=== PATIENT | female | born 1955 | race Caucasian/White ===

== ENCOUNTER → 2017-05-10 | Outpatient (CLI) | payer OTHER ==
--- NOTE | 2017-05-13 07:40 | MM ---
Reason for exam: screening (asymptomatic). Last mammogram was performed 1 year ago. History: Patient is postmenopausal and history of other cancer. Family history of breast cancer in maternal grandmother at age 60. Took hormonal contraceptives for 6 years. Taking estrogen for 4 years beginning at age 53. Taking progesterone for 4 years beginning at age 53. Physical Findings: A clinical breast exam by your physician is recommended on an annual basis and results should be correlated with mammographic findings. MG Screening Mammo w CAD Bilateral CC and MLO view(s) were taken. Prior study comparison: May 03, 2016, bilateral MG screening mammo w CAD. May 02, 2015, bilateral MG screening mammo w CAD. The breast tissue is almost entirely fat. There is chronic nodularity in the left breast. No significant changes when compared with prior studies. ASSESSMENT: Benign, BI-RAD 2 RECOMMENDATION: Routine screening mammogram of both breasts in 1 year.
== END | disposition home or self-care (01) ==
LOC: RADMAMWWP 07:57
PROVIDERS: ATTEND Internal Medicine
DX: Z12.31 Encounter for screening mammogram for malignant neoplasm of breast (principal)

== ENCOUNTER → 2018-02-14 | Outpatient (CLI) | payer OTHER ==
--- NOTE | 2018-02-14 09:26 | MR ---
EXAMINATION TYPE: MR shoulder LT wo con DATE OF EXAM: 02/14/2018 COMPARISON: NONE HISTORY: Pain, left shoulder / Impingement TECHNIQUE: Multiplanar, multisequence imaging of the left shoulder is performed without contrast. FINDINGS: Rotator Cuff: There is abnormal thickening of the rotator cuff, abnormal increased signal is present within the tendon. Suspect some susceptibility artifact within the distribution of the rotator cuff t endon, correlate for prior surgery. Partial full-thickness tear is suspected within the supraspinatus tendon. Fluid signal is present in the subacromial subdeltoid bursa. Acromioclavicular Joint: Hypertrophic change is present with some questionable mass effect on suprasp inatus musculotendinous junction, suspect some postop change Glenohumeral Joint: Intact Labrum: The anterior aspect of the labrum appears absent, immediately anterior there is a focus of si gnal which could possibly represent hypertrophied middle glenohumeral ligament although a labral tear would be difficult to exclude. Biceps Tendon: The long head of biceps is in normal location within bicipital groove. Bone marrow signal: Some minimal cystic change is present within the humeral head. Other: Small joint effusion. Distal acromial spur is suspected. IMPRESSION: Postoperative changes. Suspect partial full-thickness tear of the rotator cuff tendon, correlate for impingement. Tendinopathy is present in the rotator cuff tendon. There may be [place] complex, difficu lt to exclude labral tear. Joint effusion.
== END ==
LOC: RADMRIMAIN 08:14
PROVIDERS: ATTEND Orthopaedic Surgery Sports Medicine
DX: M25.512 Pain in left shoulder (principal); M75.42 Impingement syndrome of left shoulder; M25.412 Effusion, left shoulder

== ENCOUNTER → 2018-04-25 | Outpatient (CLI) | payer OTHER ==
[2018-04-25 08:59] LABS: ALT 38 U/L (9-52); AST 32 U/L (14-36); Albumin 4.1 g/dL (3.5-5.0); Alkaline Phosphatase 50 U/L (38-126); Anion Gap 8 mmol/L; Blood Urea Nitrogen 20 mg/dL (7-17); Calcium 9.8 mg/dL (8.4-10.2); Carbon Dioxide 28 mmol/L (22-30); Chloride 105 mmol/L (98-107); Cholesterol 194 mg/dL (<200); Glucose 90 mg/dL (74-99); HDL Cholesterol 63 mg/dL (40-60); LDL Cholesterol,Calculated 116 mg/dL (0-99); Potassium 4.5 mmol/L (3.5-5.1); Sodium 141 mmol/L (137-145); Total Bilirubin 0.7 mg/dL (0.2-1.3); Total Protein 6.6 g/dL (6.3-8.2); Triglycerides 75 mg/dL (<150)
[2018-04-25 09:16] LABS: T4, Free (Free Thyroxine) 1.09 ng/dL (0.78-2.19)
[2018-04-25 09:21] LABS: Basophils # (A) 0.1 k/uL (0-0.2); Basophils % (A) 1 %; Eosinophils # (A) 0.5 k/uL (0-0.7); Eosinophils % (A) 8 %; HCT 43.6 % (34.0-46.0); HGB 14.1 gm/dL (11.4-16.0); Lymphocytes # (A) 1.1 k/uL (1.0-4.8); Lymphocytes % (A) 20 %; MCH 30.1 pg (25.0-35.0); MCHC 32.4 g/dL (31.0-37.0); MCV 92.8 fL (80.0-100.0); Mean Platelet Volume 7.3; Monocytes # (A) 0.4 k/uL (0-1.0); Monocytes % (A) 7 %; Neutrophils # (A) 3.5 k/uL (1.3-7.7); Neutrophils % (A) 61 %; Platelet Count 258 k/uL (150-450); RDW 12.7 % (11.5-15.5); WBC 5.7 k/uL (3.8-10.6)
== END | disposition home or self-care (01) ==
LOC: LABWHC1 07:49
DX: Z00.00 Encounter for general adult medical examination without abnormal findings (principal)
CPT/HCPCS: 36415; 80053; 80061; 82306; 84439; 84443; 84481; 85025

== ENCOUNTER → 2018-05-16 | Outpatient (CLI) | payer OTHER ==
--- NOTE | 2018-05-21 11:18 | MM ---
Reason for exam: screening (asymptomatic). Last mammogram was performed 1 year ago. History: Patient is postmenopausal and history of other cancer. Family history of breast cancer in maternal grandmother at age 60. Took hormonal contraceptives for 6 years. Taking estrogen for 4 years beginning at age 53. Taking progesterone for 4 years beginning at age 53. Physical Findings: A clinical breast exam by your physician is recommended on an annual basis and results should be correlated with mammographic findings. MG 3D Screening Mammo Wo Cad Bilateral CC and MLO view(s) were taken. Prior study comparison: May 10, 2017, bilateral MG screening mammo w CAD. May 03, 2016, bilateral MG screening mammo w CAD. There are scattered fibroglandular densities. No suspicious abnormality. ASSESSMENT: Negative, BI-RAD 1 RECOMMENDATION: Routine screening mammogram of both breasts in 1 year.
== END | disposition home or self-care (01) ==
LOC: RADMAMWWP 07:38
PROVIDERS: ATTEND Internal Medicine
DX: Z12.31 Encounter for screening mammogram for malignant neoplasm of breast (principal)
CPT/HCPCS: 77063; 77067

== ENCOUNTER → 2018-12-09 | Outpatient (CLI) | payer BC | END | disposition home or self-care (01) | LOC: LABWHC1 08:42 | DX: E03.9 Hypothyroidism, unspecified (principal) | CPT/HCPCS: 36415; 84443; 84481 ==

== ENCOUNTER → 2019-04-29 | Outpatient (CLI) | payer BC ==
[2019-04-29 10:53] LABS: African American GFR (CKD) 90.3 (60.0-200.0); Albumin 4.3 g/dL (3.80-4.90); Albumin/Globulin Ratio 2.05 (1.60-3.17); BUN/Creat Ratio 21.25 Ratio (12.00-20.00); Calcium 9.7 mg/dL (8.7-10.3); Globulin 2.1 g/dL (1.6-3.3); LDL Cholesterol,Calculated 116.8 mg/dL (0.0-131.0); Potassium 4.4 mmol/L (3.5-5.5); Total Bilirubin 0.5 mg/dL (0.2-1.2); Total Protein 6.4 g/dL (6.2-8.2); VLDL Calculation 14.2 mg/dL (5.00-40.00)
[2019-04-29 11:01] LABS: T4, Free (Free Thyroxine) 1.2 ng/dL (0.80-1.80)
== END | disposition home or self-care (01) ==
LOC: LABWHC1 07:12
DX: E03.9 Hypothyroidism, unspecified (principal)
CPT/HCPCS: 36415; 80053; 80061; 84439; 84443; 84481

== ENCOUNTER → 2019-10-19 | Outpatient (CLI) | payer MEDICARE ==
--- NOTE | 2019-10-19 13:30 | MM ---
Reason for exam: screening (asymptomatic). Last mammogram was performed 1 year and 5 months ago. History: Patient is postmenopausal and history of other cancer. Family history of breast cancer in maternal grandmother at age 60. Took hormonal contraceptives for 6 years. Took estrogen for 4 years beginning at age 53. Took progesterone for 4 years beginning at age 53. Physical Findings: A clinical breast exam by your physician is recommended on an annual basis and results should be correlated with mammographic findings. MG 3D Screening Mammo W/Cad Bilateral CC and MLO view(s) were taken. Prior study comparison: May 16, 2018, bilateral MG 3d screening mammo wo cad. May 10, 2017, bilateral MG screening mammo w CAD. There are scattered fibroglandular densities. No suspicious abnormality. No significant changes when compared with prior studies. ASSESSMENT: Negative, BI-RAD 1 RECOMMENDATION: Routine screening mammogram of both breasts in 1 year.
== END | disposition home or self-care (01) ==
LOC: RADMAMWWP 08:14
PROVIDERS: ATTEND Family Medicine
DX: Z12.39 Encounter for other screening for malignant neoplasm of breast (principal)
CPT/HCPCS: 77063; 77067

== ENCOUNTER → 2019-11-11 | Outpatient (CLI) | payer MEDICARE ==
[2019-11-11 16:07] LABS: T4, Free (Free Thyroxine) 1.3 ng/dL (0.80-1.80)
== END | disposition home or self-care (01) ==
LOC: LABWHC1 08:21
DX: E03.9 Hypothyroidism, unspecified (principal)
CPT/HCPCS: 36415; 84439; 84443

== ENCOUNTER → 2023-02-04 | Outpatient (CLI) | payer MEDICARE ==
[2023-02-04 11:50] LABS: Basophils # (A) 0.11 X 10*3/uL (0.00-0.10); Basophils % (A) 1.4 %; Eosinophils % (A) 3.9 %; HCT 44.4 % (37.2-46.3); Immature Grans, Automated 0.1 %; Lymphocytes # (A) 1.66 X 10*3/uL (0.90-5.00); Lymphocytes % (A) 21.3 %; MCH 29.4 pg (27.0-32.0); MCHC 31.5 g/dL (32.0-37.0); MCV 93.3 fL (80.0-97.0); Mean Platelet Volume 10.3 fL (9.5-12.2); Monocytes # (A) 0.76 X 10*3/uL (0.20-1.00); Monocytes % (A) 9.8 %; NRBC Per 100 WBC 0 /100 WBCS (0.0-0.0); Neutrophils # (A) 4.95 X 10*3/uL (1.80-7.70); Neutrophils % (A) 63.5 %; Platelet Count 266 X 10*3/uL (140-440); RBC 4.76 X 10*6/uL (4.10-5.20); WBC 7.79 X 10*3/uL (4.50-10.00)
[2023-02-04 12:01] LABS: African American GFR (CKD) 103.2 (60.0-200.0); Anion Gap 8.5 mmol/L (10.00-18.00); BUN/Creat Ratio 18.29 Ratio (12.00-20.00); Blood Urea Nitrogen 12.8 mg/dL (9.0-27.0); Calcium 10.1 mg/dL (8.7-10.3); Carbon Dioxide 28.5 mmol/L (20.0-27.5); Magnesium 2.2 mg/dL (1.5-2.4); Potassium 4.3 mmol/L (3.5-5.5)
[2023-02-04 12:15] LABS: Appearance,Urine Cloudy (Clear); Bilirubin,Urine Negative (Negative); Blood,Urine Negative (Negative); Color,Urine Yellow (Yellow); Ketones,Urine Negative (Negative); Nitrite,Urine Negative (Negative); Specific Gravity,Urine 1.011 (1.001-1.030); Urobilinogen,Urine 0.2 (0.2,1.0)
[2023-02-04 14:09] LABS: Amorphous Sediment,Urine Present /LPF (None Seen)
[2023-02-05 10:21] LABS: Bacteria,Urine Trace
== END | disposition home or self-care (01) ==
LOC: LABPAT 07:32
PROVIDERS: ATTEND Obstetrics & Gynecology
DX: Z01.812 Encounter for preprocedural laboratory examination (principal); N81.11 Cystocele, midline; N39.3 Stress incontinence (female) (male)
CPT/HCPCS: 80048; 81001; 83735; 85025; 87086

== ENCOUNTER 2023-02-12 05:50 | Observation (INO) | payer MEDICARE ==
--- NOTE | 2023-02-12 00:35 | HP ---
HISTORY AND PHYSICAL SCHEDULED DATE OF SURGERY: 02/12/2023 HISTORY OF PRESENT ILLNESS: The patient is a 67-year-old 2, para 2-0-0-2 who presents to the office with symptomatic cystocele and uterine prolapse, both approximately grade 3 and is requesting definitive treatment. She also complained of stress urinary incontinence and was sent with evaluation for urology who agrees with the diagnosis of stress urinary incontinence and reports that the patient is a candidate for an intraoperative sling. PAST MEDICAL HISTORY: Significant for heart murmur, hemorrhoids, and thyroid issues. SURGICAL HISTORY: She has had arthroscopy, cataract surgery, several colonoscopies, blepharoplasty, rotator cuff repair, and excision of skin cancer locally. There were no anesthetic concerns by report. OBSTETRICAL HISTORY: 2, para 2-0-0-2, 2 term vaginal deliveries without complications. GYNECOLOGIC HISTORY: Unremarkable with no history of any infections to include STDs or otherwise. FAMILY HISTORY: Noncontributory. SOCIAL HISTORY: The patient is and works as a in house counsel. She is a nonsmoker and reports rare to occasional alcohol and no other social concerns. CURRENT MEDICATIONS: 1. Calcium supplementation daily. 2. Levoxyl 88 mcg daily. 3. Lipitor 10 mg daily. 4. Magnesium 30 mg, 3 times daily. 5. Montelukast 10 mg daily. 6. Prilosec OTC daily. 7. Qvar inhaler 2 puffs as needed. 8. Turmeric 400 mg daily. 9. Vitamin C daily. ALLERGIES: Reported to Claritin, codeine, Dilaudid, morphine, cillins, tramadol. There are no notes regarding what the reaction is. REVIEW OF SYSTEMS: Confined to history of present illness. PHYSICAL EXAMINATION: VITAL SIGNS: Stable. The patient is afebrile. GENERAL: This is a well-developed, well-nourished white female, in no acute distress. HEART: Regular rhythm and rate without murmur. LUNGS: Clear to auscultation bilaterally in all luciano. ABDOMEN: Nondistended, has normoactive bowel sounds, soft, nontender, and without any palpable masses, hepatosplenomegaly, or hernias. EXTREMITIES: Without any cyanosis, clubbing, edema, and are nontender to palpation bilaterally. PELVIC: Demonstrates normal external genitalia and BUS. There is a grade 3 cystocele present as well as grade 2-3 uterine prolapse present. The uterus is otherwise in mid plane and atrophic in size with normal mobility. The adnexa are normal and nontender without mass bilaterally. ASSESSMENT AND PLAN: Symptomatic cystocele and uterine prolapse: The patient is scheduled for vaginal hysterectomy with anterior colporrhaphy, possible posterior colporrhaphy. She is to have a transobturator sling performed by Dr. Valencia from Urology. Risks and complications of my portions of the procedure have been discussed at length including the risk for bleeding, bleeding requiring transfusion, infection, and injury to local structures to specifically include the bowel, bladder, and ureters. We also discussed the typical hospital and postoperative course. She has understood all this and has agreed to proceed. She was to be pretreated with estrogen cream for 2 weeks prior to surgery to enhance healing. MMODL / IJN: [id number] /
[2023-02-12] MEDS ORDERED: LACTATED RINGERS 1,000 ML IV SCH (05:58)
[2023-02-12] MEDS ORDERED: ONDANSETRON 4 MG/2 ML VIAL IVP ONE ×2 (05:58→07:10)
[2023-02-12] MEDS ORDERED: DEXAMETHASONE SOD PHOSPHATE 4 MG/ML 1 ML VIAL IV ONE (05:58)
[2023-02-12 06:56] LABS: Glucose,Whole Blood 89 mg/dL (70-110)
[2023-02-12] MEDS ORDERED: fentaNYL (PF) 50 MCG/ML 2 ML AMP IV PRN (07:00)
[2023-02-12] MEDS ORDERED: DEXAMETHASONE SOD PHOSPHATE 4 MG/ML 1 ML VIAL IVP ONE (07:10)
[2023-02-12] MEDS ORDERED: MIDAZOLAM 2 MG/2 ML VIAL IVP ONE (07:13)
[2023-02-12] MEDS ORDERED: fentaNYL (PF) 50 MCG/ML 2 ML AMP IVP ONE (07:13)
[2023-02-12] MEDS ORDERED: VASOPRESSIN 20 UNIT/ML 1 ML VIAL IV ONE ×2 (07:32)
[2023-02-12] MEDS ORDERED: GLYCOPYRROLATE 0.2 MG/ML 2 ML VIAL ONE (07:40)
[2023-02-12] MEDS ORDERED: ePHEDrine 50 MG/ML 1 ML VIAL ONE (07:40)
[2023-02-12] MEDS ORDERED: SUCCINYLCHOLINE CHLORIDE 200 MG/10 ML VIAL IV ONE (07:40)
[2023-02-12] MEDS ORDERED: fentaNYL (PF) 50 MCG/ML 2 ML AMP ONE (07:40)
[2023-02-12] MEDS ORDERED: LIDOCAINE 2% INJ 20 MG/ML (2 ML VIAL) ONE (07:40)
[2023-02-12] MEDS ORDERED: MIDAZOLAM 2 MG/2 ML VIAL ONE (07:40)
[2023-02-12] MEDS ORDERED: MORPHINE SULFATE (PF) 0.3 MG/0.3 ML SYR ONE (07:40)
[2023-02-12] MEDS ORDERED: PROPOFOL 10 MG/ML 20 ML VIAL IV ONE (07:40)
[2023-02-12] MEDS ORDERED: WATER FOR INJECTION, STERILE 10 ML VIAL IV ONE (07:40)
[2023-02-12] MEDS ORDERED: BUPIVACAINE-EPI 0.5%-1:200,000 10 ML VIAL SQ ONE (08:13)
[2023-02-12] MEDS ORDERED: GENTAMICIN 40 MG/ML 2 ML VIAL IRRIGATION ONE ×2 (08:13)
[2023-02-12] MEDS ORDERED: LACTATED RINGERS 1,000 ML IV ONE (08:17)
[2023-02-12] MEDS ORDERED: BACITRACIN OINT 1 EACH PACKET TOPICAL ONE (08:31)
[2023-02-12] MEDS ORDERED: ONDANSETRON 4 MG/2 ML VIAL IVP PRN ×2 (09:18→09:47)
[2023-02-12] MEDS ORDERED: SIMETHICONE 80 MG CHEWABLE PO PRN (09:18)
--- NOTE | 2023-02-12 09:28 | P.OP ---
Date of Procedure: 02/12/23 Preoperative Diagnosis: #1. Symptomatic grade 3 cystocele, grade 2+ uterine prolapse #2. Stress urinary incontinence Postoperative Diagnosis: same Procedure(s) Performed: #1. Vaginal hysterectomy #2. Anterior colporrhaphy/cystocele repair #3. Monarc suburethral sling (Rhabar) Anesthesia: COSME Surgeon: Jerry Ortega Department Director #1: Chasidy Rushing Estimated Blood Loss (ml): 50 IV fluids (ml): 300 Urine output (ml): 220 Pathology: other (uterus) Condition: stable Disposition: other (remains in operating room for remainder of procedure) Operative Findings: preoperative examination confirmed the findings as previously noted in history of present illness. There was additionally a small rectocele but not felt to be clinically significant enough to address intraoperatively. The ovaries were not seen but were palpated and felt to be entirely benign and atrophic in nature. Description of Procedure: the patient was prepped and draped in usual fashion after general endotracheal anesthesia was administered by the anesthesiologist. A weighted speculum was placed and the cervix grasped with a double-tooth tenaculum. The cervicovaginal mucosa was infused with diluted vasopressin solution and then incised circumferentially with a scalpel. The mucosa was then reflected distally around the entirety of the cervix. The posterior peritoneum was identified and incised sharply with the Gonzales scissors, then tagged with a stitch of 2-0 Vicryl for later use. Further reflection of the vaginal mucosa was carried out. The short weighted speculum was replaced with the long weighted speculum and a curved [place]el[place] clamp utilized to clamp the uterosacral ligaments on each side, each was cut and suture-ligated with a transfixion stitch of 0 Vicryl. Serial bites were taken up the cardinal ligament towards the utero-ovarian ligaments on each side. Each was clamped, cut, and suture-ligated with a transfixion stitch of 0 Vicryl. After several bites on each side, the uterus was inverted posteriorly and the anterior peritoneum opened sharply. The utero- ovarian pedicles were clamped with curved Adel[place] clamps, cut, and suture-ligated with a transfixion stitch of 0 Vicryl followed by a free tie of 0 Vicryl. I was unable to see the ovaries on either side but they were palpated as atrophic and normal. The long weighted speculum was replaced the short weighted speculum in the previously placed stitch of 2-0 Vicryl utilized to close the parietal peritoneum in a pursestring fashion. Uterosacral ligaments were passed with a stitch of 0 Vicryl through each other contralaterally as well as the contralateral vaginal mucosa in a modified Braxton's culdoplasty. The intervening posterior vaginal mucosa was closed with interrupted [id number]-[id number] stitches of 0 Vicryl. One stitch of 0 Vicryl was placed anteriorly and the remaining open mucosa grasped with 2 Allis clamps at its apex. The vesicovaginal mucosa was infused with diluted vasopressin solution, it was undermined in the midline with a Metzenbaum scissors and divided to the urethral apex. The mucosa was reflected from its underlying tissues both sharply and bluntly. After adequate reflection of been carried out, serial Katelyn plication stitches were made from near the apex using 2-0 PDS and proceeding to the base of the hysterectomy dissection. The intervening redundant vaginal mucosa was trimmed to the urethral apex. Prior to placing any Katelyn plication stitches, A Silva catheter was placed and 200 mL of clear gomez urine was drained. After trimming the vaginal mucosa, the case was turned over to Dr. Pascual. Estimated blood loss for my portion of the case was approximately 50 mL or less. There were no complications. All sponge, instrument, and needle counts were correct as the patient remained in the operating room. Remainder of the case will be dictated per Dr. Pascual.
[2023-02-12] MEDS ORDERED: PANTOPRAZOLE 40 MG TABLET PO PRN (09:46)
[2023-02-12] MEDS ORDERED: KETOROLAC 15 MG/ML 1 ML VIAL IVP PRN (09:47)
--- NOTE | 2023-02-12 09:54 | P.HPIHPCON ---
History of Present Illness H&P Date: 02/12/23 This is a 67 yo female history of stress urinary incontinence. She also has a history of symptomatic cystocele and rectocele with plan to undergo a hysterectomy with a prolapse repair by Dr. Ortega. Discussed with her given her stress incontinence the Option of a mid urethral sling at the same setting the alternative of bulking agent were discussed with her detail. She agreed to proceed with a mid urethral sling. Discussed the risk which includes but not limited to bleeding, infection, persistent incontinence, urinary retention. Discussed also we will be using mesh, discussed the risk of mesh erosion into the vagina, the bladder, the urethra. She understood all the risk and agreed to proceed Consent for Procedure: I have explained the operation/procedure to the patient, including the risks, benefits, side effects, alternative therapies (including not receiving the proposed treatment or service), the likelihood of the patient achieving his/her goals, and potential recuperation problems for the procedure/sedation/analgesia, as well as any blood products, if indicated. I also explained to the patient the risks, benefits and side effects of the alternatives, as well as the risks related to not receiving the proposed procedure, care, treatment, or services. Past Medical History Past Medical History: Asthma, GERD/Reflux, Hyperlipidemia, Osteoarthritis (OA), Thyroid Disorder Additional Past Medical History / Comment(s): hx. leaky heart valve, runs low BP & hx. of slow heart rate, usually in the 40's or low 50's per pt, hx. of elevated ferritin, bladder prolapse, current right shoulder pain related to an injury, hypoglycemia History of Any Multi-Drug Resistant Organisms: None Reported Past Surgical History: Orthopedic Surgery Additional Past Surgical History / Comment(s): eyelid surg. bernardo, bernardo. rotator cuff repair, bernardo knee arthroscopies, bernardo cataracts removed, colonoscopies, GIORGI Past Anesthesia/Blood Transfusion Reactions: No Reported Reaction, Family History of Problems w/ Anesthesia Additional Past Anesthesia/Blood Transfusion Reaction / Comment(s): mom & brother have trouble waking & PONV Smoking Status: Never smoker - Past Family History Mother Family Medical History: Deep Vein Thrombosis (DVT) Medications and Allergies Home Medications Medication Instructions Recorded Confirmed Type Ascorbic Acid [Vitamin C] 1,000 mg PO DAILY 02/06/23 02/12/23 History Atorvastatin [Lipitor] 10 mg PO HS 02/06/23 02/12/23 History Beclomethasone Dip 80 Mcg/Puff 2 puff INHALATION BID 02/06/23 02/12/23 History [Qvar 80 mcg] Calcium Carbonate [Calcium] 1,200 mg PO DAILY 02/06/23 02/12/23 History Cholecalciferol (Vitamin D3) 75 mcg PO Q2D 02/06/23 02/12/23 History [Vitamin D3] Cholecalciferol [Vitamin D3 (25 100 mcg PO Q2D 02/06/23 02/12/23 History Mcg = 1000 Iu)] Levothyroxine Sodium [Synthroid] 88 mcg PO DAILY 02/06/23 02/12/23 History Magnesium 1,200 mg PO DAILY 02/06/23 02/12/23 History Montelukast Sodium [Singulair] 10 mg PO HS 02/06/23 02/12/23 History Multivitamins, Thera [Multivitamin 1 tab PO DAILY 02/06/23 02/12/23 History (formulary)] Omeprazole [PriLOSEC] 20 mg PO AC-BRKFST PRN 02/06/23 02/12/23 History Topical Cbd See Rx Instructions .ROUTE 02/06/23 02/12/23 History .COMPLEX PRN Turmeric Root Extract [Turmeric] 500 mg PO DAILY 02/06/23 02/12/23 History Allergies Allergy/AdvReac Type Severity Reaction Status Date / Time codeine Allergy Nausea Verified 02/12/23 06:30 loratadine [From Claritin] Allergy headache Verified 02/12/23 06:30 Penicillins Allergy Nausea Verified 02/12/23 06:30 hydromorphone [From Dilaudid] AdvReac Nausea & Verified 02/12/23 06:30 Vomiting tramadol [From Ultram] AdvReac Nausea Verified 02/12/23 06:30 Surgical - Exam Vital Signs Temp Pulse Resp BP Pulse Ox 97.2 F L 42 L 15 164/67 100 02/12/23 06:40 02/12/23 06:40 02/12/23 06:40 02/12/23 06:40 02/12/23 06:40 - General no distress, no pain - Eyes normal ocular movement, no pale - ENT normal nares, normal mucosa - Abdomen Abdomen: soft, non tender Assessment and Plan Assessment: OR for a mid urethral sling
[2023-02-12] MEDS ORDERED: DEXTROSE 5%-0.45% NACL 1,000 ML IV SCH (10:00)
--- NOTE | 2023-02-12 10:02 | P.OP ---
Date of Procedure: 02/12/23 Preoperative Diagnosis: Stress urinary incontinence Postoperative Diagnosis: Same Procedure(s) Performed: Trans-obturator mid urethral sling Implants: Obtyrux mesh Anesthesia: AGUEDAA Surgeon: Nabeel Valencia Estimated Blood Loss (ml): 25 Pathology: none sent Condition: stable Disposition: PACU Indications for Procedure: This is a 67 yo female history of stress urinary incontinence. She also has a history of symptomatic cystocele and rectocele with plan to undergo a hysterectomy with a prolapse repair by Dr. Ortega. Discussed with her given her stress incontinence the Option of a mid urethral sling at the same setting the alternative of bulking agent were discussed with her detail. She agreed to proceed with a mid urethral sling. Discussed the risk which includes but not limited to bleeding, infection, persistent incontinence, urinary retention. Discussed also we will be using mesh, discussed the risk of mesh erosion into the vagina, the bladder, the urethra. She understood all the risk and agreed to proceed Description of Procedure: After Dr Ortega completed his portion of the surgery, at this time I proceeded with sling placement. The submucosal plane alond the anterior vaginal wall , to the inferior pubic ramus was already developed by Dr Ortega. The scalpel was used to make bilateral groin incisions at the level of the clitoris. Subcutaneous tissues were spread with a hemostat. Each of the helical needles were passed through the respective groin incision, and turned such that the needle tip wrapped around the pubis. The needle tips were guided digitally into the vaginal incision. The Obtryx graft, which had been previously soaked in antibiotic solution, was secured to the needle tips in the standard fashion. The needles were then withdrawn, and the position of the graft was adjusted such that it overlie the mid urethra, as desired. With a hemostat placed between the graft and the urethra to prevent tension of the graft over the urethra, the plastic sheath was removed from the ends of the graft. The ends of the graft were cut beneath the skin incisions, and these incisions were closed using 4-0 Vicryl suture in a subcuticular fashion. Hemostasis within the vaginal incision was adequate, and the vaginal incision was closed using 2-0 Vicryl suture in a running fashion. Cystoscopy was performed. The 30 lens was used to introduce the 17-English Storz cystoscopic sheath through the urethra and into the bladder under direct vision. The urethra and bladder were unremarkable. There was no evidence of perforation. Both ureteral orifices were of normal anatomic location and configuration, and clear urine effluxed from both. No tumors or foreign bodies were seen. The cystoscope was removed, and the Silva catheter was replaced into the bladder. Vaginal packing was placed. All sponge and needle counts were correct. The patient tolerated the procedure well was taken to the recovery room in stable condition. lucien
[2023-02-12] MEDS: METOCLOPRAMIDE 5 MG/ML 2 ML VIAL IVP PRN ×2 (10:45→19:53)
[2023-02-12] MEDS: LACTATED RINGERS 1,000 ML IV SCH ×2 (12:47→20:59)
--- NOTE | 2023-02-12 13:44 | P.ANPRN ---
Procedure Note - Anesthesia - Epidural/Spinal Spinal Time Out Performed: Yes Date of Procedure: 02/12/23 Procedure Start Time: 07:12 Procedure Stop Time: 07:16 Location of Patient: PreOp Indication: Acute Post-Operative Pain Sedation Type: Sedate with meaningful contact maintained Preparation: Sterile Prep Position: Sitting Needle Guage: 25 Blood Aspirated: No Pain Paresthesia on Injection Noted: No Events: Uneventful and Well Tolerated (duramorph 300 mics fentanyl 25 mics given intrathecally)
[2023-02-12] MEDS: diphenhydrAMINE 50 MG/ML 1 ML VIAL IVP PRN (15:21)
[2023-02-12] MEDS: FLUTICASONE 110 MCG INHALER INHALATION SCH (20:02)
[2023-02-12] MEDS: ATORVASTATIN 10 MG TAB PO SCH (21:05)
[2023-02-12] MEDS: SENNOSIDES-DOCUSATE SODIUM 1 EACH TAB PO SCH (21:05)
[2023-02-12] MEDS: MONTELUKAST 10 MG TAB PO SCH (21:05)
[2023-02-13] MEDS: diphenhydrAMINE 50 MG/ML 1 ML VIAL IVP PRN (06:07)
[2023-02-13] MEDS: KETOROLAC 15 MG/ML 1 ML VIAL IVP PRN ×2 (06:08→16:38)
[2023-02-13] MEDS: LEVOTHYROXINE 88 MCG TAB PO SCH (06:35)
[2023-02-13 07:42] LABS: Basophils % (A) 0 %; Eosinophils % (A) 0 %; HGB 11.6 gm/dL (11.4-16.0); Lymphocytes # (A) 0.9 k/uL (1.0-4.8); Lymphocytes % (A) 8 %; MCH 29.9 pg (25.0-35.0); MCHC 32.3 g/dL (31.0-37.0); MCV 92.5 fL (80.0-100.0); Mean Platelet Volume 8.4; Monocytes # (A) 0.5 k/uL (0-1.0); Monocytes % (A) 4 %; Neutrophils # (A) 10.7 k/uL (1.3-7.7); Neutrophils % (A) 87 %; Platelet Count 190 k/uL (150-450); RBC 3.89 m/uL (3.80-5.40); RDW 13.1 % (11.5-15.5); WBC 12.2 k/uL (3.8-10.6)
[2023-02-13] MEDS ORDERED: SCOPOLAMINE 1 MG/72 HR PATCH TRANSDERM STA (07:46)
--- NOTE | 2023-02-13 07:49 | P.PN ---
Progress Note - Text Progress Note Date: 02/13/23 Postop day 1 from hysterectomy with intrathecal morphine given for postop pain management. Patient is doing well. Pain is well controlled. On visual analog scale 3/10 Mild itching present Has lot of nausea or vomiting reported. Scopalamine patch ordered. No Headache or weakness and numbness in the legs. No complications from spinal anesthesia.
[2023-02-13] MEDS: FLUTICASONE 110 MCG INHALER INHALATION SCH ×2 (08:11→21:02)
--- NOTE | 2023-02-13 08:45 | P.PN ---
Subjective Progress Note Date: 02/13/23 Principal diagnosis: symptomatic cystocele and uterine prolapse the patient has had significant nausea and vomiting since the time of surgery. She did tolerate 1 pancake this morning and feels that her nausea seems to be clearing at this time. She has been unable to get out of bed yet. Her catheter has been removed about she has not yet voided. She denies any significant pain of any kind. Objective - Vital Signs Vital signs: Vital Signs Temp 98.2 F 02/13/23 08:00 Pulse 58 L 02/13/23 08:00 Resp 16 02/13/23 08:00 BP 93/46 02/13/23 08:00 Pulse Ox 98 02/13/23 08:00 FiO2 Intake & Output 02/12/23 02/13/23 02/13/23 18:59 06:59 18:59 Intake Total 1850 1000 Output Total 545 800 Balance 1305 -800 1000 Intake: IV 1850 Intake, IV Titration 1000 Amount Lactated Ringers 1,000 ml 1000 @ 100 mls/hr IV .Q10H [facility] Rx#:[id number] Output: Urine 470 800 Uretheral (Silva) 150 800 Estimated Blood Loss 75 Other: Voiding Method Indwelling Catheter # Voids 0 - Exam in general, this is a well-developed, well-nourished white female in no acute distress. Her abdomen is nondistended, soft, nontender, and without any masses. Her extremities without any cyanosis, clubbing, or edema and are nontender to palpation bilaterally. - Labs CBC & Chem 7: 02/13/23 07:01 Labs: Abnormal Lab Results - Last 24 Hours (Table) 02/13/23 Range/Units 07:01 WBC 12.2 H (3.8-10.6) k/uL Neutrophils # 10.7 H (1.3-7.7) k/uL Lymphocytes # 0.9 L (1.0-4.8) k/uL Assessment and Plan (1) Cystocele Current Visit: Yes Status: Acute Code(s): [id number] - SNOMED Code(s): 534919145 (2) Uterine prolapse Current Visit: Yes Status: Acute Code(s): N81.4 - UTEROVAGINAL PROLAPSE, UNSPECIFIED SNOMED Code(s): 59704765 Plan: the patient is status post vaginal hysterectomy with anterior colporrhaphy and M onarch suburethral sling. The surgeries were entirely uncomplicated. I strongly suspect that her nausea is related to the spinal Duramorph as she has had significant and violent reactions in the past to narcotics although they have been given orally. She reports significant improvement in the last hour or 2 which is a little more than 25 hours since placement of the Duramorph. She has been advanced to regular diet. She still has to void. Assuming she is able to void the majority of the volume of her urine with no significant postvoid residual, tolerate regular diet, and had pain controlled with nonsteroidals, she will likely be discharged home later today. We will continue to follow closely as the day wears on.
[2023-02-13] MEDS: SENNOSIDES-DOCUSATE SODIUM 1 EACH TAB PO SCH ×2 (08:57→21:03)
[2023-02-13] MEDS: MAGNESIUM OXIDE 400 MG TAB PO SCH (08:59)
[2023-02-13] MEDS ORDERED: ACETAMINOPHEN TAB 325 MG TAB PO PRN (09:21)
--- NOTE | 2023-02-13 09:31 | P.PN ---
Subjective Progress Note Date: 02/13/23 Principal diagnosis: Symptomatic grade 3 cystocele, grade 2+ uterine prolapse and Stress urinary incontinence. POD #1, s/p TOT sling. This is a 67 yo female history of stress urinary incontinence. She also has a history of symptomatic cystocele and rectocele with plan to undergo a hysterectomy with a prolapse repair by Dr. Ortega. On 02/13/23 she underwent a trans-obturator mid urethral sling with Dr. Valencia, and a vaginal hysterectomy with anterior colporrhaphy/cystocele repair with Dr. Ortega. The paient tolerated the procedures well and was placed in the hospital for recovery. Objective - Vital Signs Vital signs: Vital Signs Temp 98.2 F 02/13/23 08:00 Pulse 58 L 02/13/23 08:00 Resp 16 02/13/23 08:00 BP 93/46 02/13/23 08:00 Pulse Ox 98 02/13/23 08:00 FiO2 Intake & Output 02/12/23 02/13/23 02/13/23 18:59 06:59 18:59 Intake Total 1850 1000 Output Total 545 800 Balance 1305 -800 1000 Intake: IV 1850 Intake, IV Titration 1000 Amount Lactated Ringers 1,000 ml 1000 @ 100 mls/hr IV .Q10H [facility] Rx#:[id number] Output: Urine 470 800 Uretheral (Silva) 150 800 Estimated Blood Loss 75 Other: Voiding Method Indwelling Catheter # Voids 0 - Exam General: Well developed, well nourished. No acute distress. HEENT: Head is atraumatic, normocephalic. Lungs: Respirations even and nonlabored. Abdomen/GI: Soft, non-distended. No guarding, rigidity, + abdominal tenderness Skin: Warm and dry, bilateral groin incisions CDI Neurologic: Alert and oriented 3, CN II-XII grossly intact. No focal deficits. Psychiatric: Appropriate mood and affect. - Labs CBC & Chem 7: 02/13/23 07:01 Labs: Abnormal Lab Results - Last 24 Hours (Table) 02/13/23 Range/Units 07:01 WBC 12.2 H (3.8-10.6) k/uL Neutrophils # 10.7 H (1.3-7.7) k/uL Lymphocytes # 0.9 L (1.0-4.8) k/uL Assessment and Plan Assessment: POD#1 The patient is awake and alert. She is experiencing PONV which could be related to the Duramorph. She has a history of nausea/vomiting with other narcotics. Anesthesia is following and has ordered a scopalamine patch. She reports her pain as being well controlled. Her Sliva catheter and vaginal packing have been removed by nursing staff this morning. She is due to void. If PVR less than 250, and her nausea subsides the patient may be discharged home later today from a urological standpoint. A prescription for Keflex was sent to her pharmacy. She is to follow-up with Dr. Valencia in 1 week. (1) KALPESH (stress urinary incontinence, female) Current Visit: Yes Status: Acute Code(s): N39.3 - STRESS INCONTINENCE (FEMALE) (MALE) SNOMED Code(s): 22784774 (2) Cystocele Current Visit: Yes Status: Acute Code(s): JUB1008 - SNOMED Code(s): 303274203 Plan: - Increase activity - Continue antiemetics - Check PVR - Continue current pain management - From a urological standpoint the patient may be discharged later on this afternoon if she is able to void with a PVR < 250, her pain is well managed, and her nausea has resolved. If she is unable to void or empties her bladder incompletely, she will be taught to self catheterize. - Follow up with Dr. Valencia in 1 week Impression and plan of care have been directed as dictated by the signing physician. Adry Mendez nurse practitioner acting as scribe for signing kathy Mendez [facility] Palliative Care/Urology Spectralink [id number] Email: [email or web address] I have personally seen and examined the patient, reviewed the documentation and agree with the assessment and plan as written. Number of minutes spent on the visit: 15. Pavel Aponte MD
[2023-02-13] MEDS ORDERED: PROCHLORPERAZINE INJ 10 MG/2 ML VIAL IVP STA (16:39)
[2023-02-13] MEDS ORDERED: diphenhydrAMINE 50 MG/ML 1 ML VIAL IVP STA (16:39)
[2023-02-13] MEDS ORDERED: hydrALAZINE HCL 10 MG TAB PO PRN (16:40)
--- NOTE | 2023-02-13 16:42 | P.CONS ---
History of Present Illness - Reason for Consult Consult date: 02/13/23 medical management of postoperative hypertension Requesting physician: Jerry Ortega - History of Present Illness History of Presenting Illness: Patient is a very pleasant 67-year-old female with a past medical history of hyperlipidemia, asthma, hypothyroidism, chronic bradycardia, and osteoarthritis. She is currently admitted under HALL DIRECTOR team status post vaginal hysterectomy with cystocele repair. We have been consulted secondary to postoperative hypertension. Patient seen and fully evaluated at bedside. Patient lying supine upon examination with cold cloth on forehead. Patient reports headache accompanied by severe nausea. Patient has not had any vomiting. Patient reports postoperative abdominal pain is controlled and rates "maybe a 4 out of 10" at this time. Upon evaluation and blood pressure 165/80 and heart rate 50. Reviewed vital signs closely throughout hospitalization. Preoperatively patient's blood pressures appear to have been running soft and postoperative patient's blood pressures are elevated. Patient denies having any dizziness, lightheadedness, changes in vision or hearing, chest pain, palpitations, shortness of breath, or experiencing any numbness/tingling/weakness in her extremities. Review of systems: Pertinent positives and negatives as discussed in HPI, a complete review of systems was performed and all other systems are negative. Physical exam: Vital signs reviewed and stable. General: Nontoxic, no distress and appears stated age. Derm: Skin warm and dry, normal coloration for ethnicity. Head: Atraumatic, normocephalic and symmetric. Eyes: EOMs intact, no lid lag, and anicteric sclera Mouth: no lip lesions, mucus membranes moist Cardiovascular: regular rate and rhythm with normal S1S2, no murmur, positive posterior tibial pulses bilaterally, and cap refill < 2 seconds. Lungs: Respirations even, regular, and unlabored on room air. Lungs CTA bilaterally, no rhonchi, no rales, no wheezing, and no accessory muscle usage. Abdominal: soft, nontender to palpation, no guarding, no appreciable organ omegaly Ext: ROM intact. No gross muscle atrophy, no edema, no contractures Neuro: Speech clear, face symmetrical and CN II-XII grossly intact with no noted focal neuro deficits Psych: Alert and oriented to person, place, time, and situation. Appropriate and pleasant affect. Assessment and plan of care: Postoperative hypertension Postoperative nausea Headache Status post vaginal hysterectomy with cystocele repair Hyperlipidemia Asthma Hypothyroidism -Order placed for migraine cocktail with Toradol 15 mg IVP, Compazine 10 mg IVP, and Benadryl 25 mg IVP. -Will hold off on ordering scheduled blood pressure medications at this time as patient does not appear to have history of hypertension and do not want to cause unnecessary drugs. Order was placed for when necessary medication hydralazine only to be administered for systolic pressure greater than 180 and/or diastolic pressure greater than 120. -Symptomatic care and pain management. -Treat postoperative pain, admitted on Ofirmev 1000 mg every 6 hours scheduled 4 doses.. -Hold medications reviewed. Patient to continue atorvastatin 10 mg nightly, levothyroxine 88 mg daily, Singulair 10 mg nightly and Protonix 40 mg daily. -Order placed for EKG to have baseline. Patient was seen independently by Nurse Pracitioner. This document was prepared using [employer] dictation software. Please allow for errors in chief projectionist, while rare they do occur. Thank you for allowing us to participate in the care of this pleasant patient. Do not hesitate to contact us with questions. Someone can be reached from the [facility] hospitalist group all hours of the day at [phone] or via [email or web address]. Past Medical History Past Medical History: Asthma, GERD/Reflux, Hyperlipidemia, Osteoarthritis (OA), Thyroid Disorder Additional Past Medical History / Comment(s): hx. leaky heart valve, runs low BP & hx. of slow heart rate, usually in the 40's or low 50's per pt, hx. of elevated ferritin, bladder prolapse, current right shoulder pain related to an injury, hypoglycemia History of Any Multi-Drug Resistant Organisms: None Reported Past Surgical History: Orthopedic Surgery Additional Past Surgical History / Comment(s): eyelid surg. bernardo, bernardo. rotator cuff repair, bernardo knee arthroscopies, bernardo cataracts removed, colonoscopies, GIORGI Past Anesthesia/Blood Transfusion Reactions: No Reported Reaction, Family History of Problems w/ Anesthesia Additional Past Anesthesia/Blood Transfusion Reaction / Comm: mom & brother have trouble waking & PONV Smoking Status: Never smoker - Past Family History Mother Family Medical History: Deep Vein Thrombosis (DVT) Medications and Allergies Home Medications Medication Instructions Recorded Confirmed Type Ascorbic Acid [Vitamin C] 1,000 mg PO DAILY 02/06/23 02/12/23 History Atorvastatin [Lipitor] 10 mg PO HS 02/06/23 02/12/23 History Beclomethasone Dip 80 Mcg/Puff 2 puff INHALATION BID 02/06/23 02/12/23 History [Qvar 80 mcg] Calcium Carbonate [Calcium] 1,200 mg PO DAILY 02/06/23 02/12/23 History Cholecalciferol (Vitamin D3) 75 mcg PO Q2D 02/06/23 02/12/23 History [Vitamin D3] Cholecalciferol [Vitamin D3 (25 100 mcg PO Q2D 02/06/23 02/12/23 History Mcg = 1000 Iu)] Levothyroxine Sodium [Synthroid] 88 mcg PO DAILY 02/06/23 02/12/23 History Magnesium 1,200 mg PO DAILY 02/06/23 02/12/23 History Montelukast Sodium [Singulair] 10 mg PO HS 02/06/23 02/12/23 History Multivitamins, Thera [Multivitamin 1 tab PO DAILY 02/06/23 02/12/23 History (formulary)] Omeprazole [PriLOSEC] 20 mg PO AC-BRKFST PRN 02/06/23 02/12/23 History Topical Cbd See Rx Instructions .ROUTE 02/06/23 02/12/23 History .COMPLEX PRN Turmeric Root Extract [Turmeric] 500 mg PO DAILY 02/06/23 02/12/23 History Cephalexin [Keflex] 500 mg PO Q8HR 3 Days #9 cap 02/13/23 Rx Allergies Allergy/AdvReac Type Severity Reaction Status Date / Time codeine Allergy Nausea Verified 02/12/23 06:30 loratadine [From Claritin] Allergy headache Verified 02/12/23 06:30 Penicillins Allergy Nausea Verified 02/12/23 06:30 hydromorphone [From Dilaudid] AdvReac Nausea & Verified 02/12/23 06:30 Vomiting tramadol [From Ultram] AdvReac Nausea Verified 02/12/23 06:30 Physical Exam Vitals: Vital Signs Temp Pulse Resp BP Pulse Ox 02/13/23 15:40 58 L 18 176/82 94 L 02/13/23 15:30 52 L 182/80 02/13/23 15:15 58 L 178/82 02/13/23 08:00 98.2 F 58 L 16 93/46 98 02/13/23 04:11 96 02/13/23 01:34 61 16 99 02/13/23 00:00 97.8 F 57 L 14 100/61 99 02/12/23 21:07 51 L 16 97 02/12/23 20:01 98 02/12/23 19:47 56 L 14 96 Intake and Output 02/13/23 02/13/23 02/13/23 06:59 14:59 22:59 Intake Total 1480 1660 Output Total 800 10 315 Balance -800 1470 1345 Intake: Intake, IV Titration 1000 350 Amount Lactated Ringers 1,000 ml 1000 350 @ 100 mls/hr IV .Q10H [facility] Rx#:[id number] Oral 480 1310 Output: Urine 800 10 315 Straight 300 Uretheral (Silva) 800 Other: Voiding Method Indwelling Catheter # Voids 0 1 1 Results CBC & Chem 7: 02/13/23 07:01 Labs: Abnormal Lab Results - Last 24 Hours (Table) 02/13/23 Range/Units 07:01 WBC 12.2 H (3.8-10.6) k/uL Neutrophils # 10.7 H (1.3-7.7) k/uL Lymphocytes # 0.9 L (1.0-4.8) k/uL
[2023-02-13] MEDS: LACTATED RINGERS 1,000 ML IV SCH (20:33)
[2023-02-13] MEDS: ATORVASTATIN 10 MG TAB PO SCH (21:03)
[2023-02-13] MEDS: MONTELUKAST 10 MG TAB PO SCH (21:03)
[2023-02-13] MEDS: ACETAMINOPHEN IV (For NPO) 1,000 MG in EMPTY BAG 1 BAG IVPB SCH (22:20)
[2023-02-14] MEDS: IBUPROFEN 600 MG TAB PO PRN ×2 (00:12→06:50)
[2023-02-14 01:11] VITALS: RESP 16
[2023-02-14] MEDS: ACETAMINOPHEN IV (For NPO) 1,000 MG in EMPTY BAG 1 BAG IVPB SCH ×2 (03:51→06:51)
[2023-02-14] MEDS: LACTATED RINGERS 1,000 ML IV SCH (03:52)
[2023-02-14] MEDS: LEVOTHYROXINE 88 MCG TAB PO SCH (06:51)
--- NOTE | 2023-02-14 08:50 | P.DS ---
Providers Date of admission: 02/14/23 08:18 Expected date of discharge: 02/14/23 Attending physician: Jerry Ortega Consults: 02/13/23 16:01 Consult Physician Urgent Consulting Provider: Jenni Meyers Consult Reason/Comments: increased B/P post op Do you want consulting provider notified?: Yes Primary care physician: Satish Chu Kut - Discharge Diagnosis(es) (1) Cystocele Current Visit: Yes Status: Acute (2) Uterine prolapse Current Visit: Yes Status: Acute Hospital Course: the patient is a 67-year-old 2 para 2 scissors or 2 presented to the office with complaints of symptomatic cystocele and was found additionally was some uterine prolapse. She requested definitive treatment. She additionally complained of symptoms consistent with stress urinary incontinence and was sent to urology for consultation and urodynamics. She was indeed found to have stress urinary incontinence and to be a candidate for intraoperative sling procedure during the repair of her prolapse concerns. She was taken the oper ating room where she underwent vaginal hysterectomy with anterior colporrhaphy and an uncomplicated fashion at my hands. That case was followed immediately by urology performing a Monarc suburethral sling. The patient's postoperative course was complicated by an initial 24 hours of significant nausea which was thought to be secondary to the spinal Duramorph as the patient has had violent reactions to narcotics given orally in the past. This resulted approximate 24 hours. Later in the afternoon on postoperative day #1, she developed a significant headache and had some moderate to significant elevated blood pressures which were unusual for her. Internal medicine was consulted and felt that the findings were all secondary to a migraine headache and some treatment was provided. The headache did ultimately resolve her blood pressures returned to a more manageable level having that required any significant antihypertensive intervention. She additionally over the course of her postoperative course had difficulty voiding. She was able to void small amounts of urine but post void residuals were found to be as high as 200-500 mL. Urology has not yet seen the patient on the morning ofpostoperative day #2 and the disposition of her bladder management will be left to them as to whether she performs self-catheterization versus having indwelling catheter for several days to be reevaluated in the office next week. I favor the latter of the 2 choices. The patient's vital signs were otherwise stable and she was afebrile throughout. She was deemed stable for discharge on the morning of postoperative day #2 was discharged home to follow-up in the office with me in 2 weeks and 6 weeks and with urology in approximately 1 week. Discharge instructions included calling for any sign ificantly increased bleeding, fever, pain, GI or urinary complaints with urinary complaints to be directed towards urology primarily. She was most specifically instructed to do no heavy lifting of anything more than the weight of a gallon of milk over the next 6 weeks and to abstain from anything in the vagina over the same period of time. She understood her instructions and agrees to follow up as noted above. Discharge medications included any home medications as well as [id number] analgesic pain medications. discharge hemoglobin and hematocrit were 11.6 and 36.0 respectively. Procedures: #1. Vaginal hysterectomy #2. Anterior colporrhaphy #3. Monarc suburethral sling #4. Internal medicine consultation Patient Condition at Discharge: Stable Plan - Discharge Summary Discharge Rx Participant: No New Discharge Prescriptions: New Cephalexin [Keflex] 500 mg PO Q8HR 3 Days #9 cap No Action Levothyroxine Sodium [Synthroid] 88 mcg PO DAILY Topical Cbd See Rx Instructions .ROUTE .COMPLEX PRN PRN Reason: Pain Magnesium 1,200 mg PO DAILY Cholecalciferol (Vitamin D3) [Vitamin D3] 75 mcg PO Q2D Calcium Carbonate [Calcium] 1,200 mg PO DAILY Beclomethasone Dip 80 Mcg/Puff [Qvar 80 mcg] 2 puff INHALATION BID Omeprazole [PriLOSEC] 20 mg PO AC-BRKFST PRN PRN Reason: Heartburn Montelukast Sodium [Singulair] 10 mg PO HS Atorvastatin [Lipitor] 10 mg PO HS Cholecalciferol [Vitamin D3 (25 Mcg = 1000 Iu)] 100 mcg PO Q2D Multivitamins, Thera [Multivitamin (formulary)] 1 tab PO DAILY Turmeric Root Extract [Turmeric] 500 mg PO DAILY Ascorbic Acid [Vitamin C] 1,000 mg PO DAILY Discharge Medication List Ascorbic Acid [Vitamin C] 1,000 mg PO DAILY 02/06/23 [History] Atorvastatin [Lipitor] 10 mg PO HS 02/06/23 [History] Beclomethasone Dip 80 Mcg/Puff [Qvar 80 mcg] 2 puff INHALATION BID 02/06/23 [History] Calcium Carbonate [Calcium] 1,200 mg PO DAILY 02/06/23 [History] Cholecalciferol (Vitamin D3) [Vitamin D3] 75 mcg PO Q2D 02/06/23 [History] Cholecalciferol [Vitamin D3 (25 Mcg = 1000 Iu)] 100 mcg PO Q2D 02/06/23 [History] Levothyroxine Sodium [Synthroid] 88 mcg PO DAILY 02/06/23 [History] Magnesium 1,200 mg PO DAILY 02/06/23 [History] Montelukast Sodium [Singulair] 10 mg PO HS 02/06/23 [History] Multivitamins, Thera [Multivitamin (formulary)] 1 tab PO DAILY 02/06/23 [History] Omeprazole [PriLOSEC] 20 mg PO AC-BRKFST PRN 02/06/23 [History] Topical Cbd See Rx Instructions .ROUTE .COMPLEX PRN 02/06/23 [History] Turmeric Root Extract [Turmeric] 500 mg PO DAILY 02/06/23 [History] Cephalexin [Keflex] 500 mg PO Q8HR 3 Days #9 cap 02/13/23 [Rx] Follow up Appointment(s)/Referral(s): Nabeel Valencia MD [STAFF PHYSICIAN] - 1 Week Jerry Ortega MD [STAFF PHYSICIAN] - 2 Weeks Activity/Diet/Wound Care/Special Instructions: - No heavy lifting, straining, or strenuous activity - Take Tylenol or Mortin for discomfort - Take antibiotic as prescribed - You may shower, no tub baths - It is normal to have some bloody discharge - Take stool softer or laxative as needed to avoid straining - Follow up with Dr. Valencia in one week Discharge Disposition: HOME SELF-CARE
--- NOTE | 2023-02-14 08:54 | P.PN ---
Subjective Progress Note Date: 02/14/23 Hospital course: Patient is a very pleasant 67-year-old female with a past medical history of hyperlipidemia, asthma, hypothyroidism, chronic bradycardia, and osteoarthritis. She is currently admitted under OIL WELL DIRECTIONAL SURVEYOR team status post a trans-obturator mid urethral sling with Dr. Valencia, and a vaginal hysterectomy with anterior colporrhaphy/cystocele repair with Dr. Ortega completed on 02/13/23. We where consulted secondary to postoperative hypertension. Patient seen and fully evaluated at bedside. Patient lying supine upon examination with cold cloth on forehead. Patient reports headache accompanied by severe nausea. Patient has not had any vomiting. Patient reports postoperative abdominal pain is controlled and rates "maybe a 4 out of 10" at this time. Upon evaluation and blood pressure 165/80 and heart rate 50. Reviewed vital signs closely throughout hospitalization. Preoperatively patient's blood pressures appear to have been running soft and postoperative patient's blood pressures are elevated. Patient denies having any dizziness, lightheadedness, changes in vision or hearing, chest pain, palpitations, shortness of breath, or experiencing any numbness/tingling/weakness in her extremities. Physical exam: Patient remained hypertensive throughout the night averaging between 150s to 170s systolic and has improved this morning with blood pressure of 145/58 with heart rate of 55, however upon further chart review patient has had significant urinary retention with a reported 4100 mL of combined urinary retention overnight as patient reports only being able to urinate a small amount each time. Urinary retention and postoperative discomfort is believed to be the cause of the patient's mild hypertension, do not recommend starting patient on antihypertensive medication at this time..Patient reports having full resolution of postoperative headache and nausea and currently reports controlled postoperative pain. Patient does report feeling mildly anxious regarding need for self-catheterization. Vital signs reviewed and stable. General: Nontoxic, no distress and appears stated age. Derm: Skin warm and dry, normal coloration for ethnicity. Head: Atraumatic, normocephalic and symmetric. Eyes: EOMs intact, no lid lag, and anicteric sclera Mouth: no lip lesions, mucus membranes moist Cardiovascular: regular rate and rhythm with normal S1S2, no murmur, positive posterior tibial pulses bilaterally, and cap refill < 2 seconds. Lungs: Respirations even, regular, and unlabored on room air. Lungs CTA bilaterally, no rhonchi, no rales, no wheezing, and no accessory muscle usage. Abdominal: soft, nontender to palpation, no guarding, no appreciable organomegaly Ext: ROM intact. No gross muscle atrophy, no edema, no contractures Neuro: Speech clear, face symmetrical and CN II-XII grossly intact with no noted focal neuro deficits Psych: Alert and oriented to person, place, time, and situation. Appropriate and pleasant affect. Assessment and plan of care: Postoperative hypertension, improved Postoperative urinary retention Postoperative nausea, resolved Postoperative Headache, resolved Status post vaginal hysterectomy with anterior colporrhaphy/cystocele repair Status post trans-obturator mid urethral sling Hyperlipidemia Asthma Hypothyroidism -Patient remained hypertensive throughout the night averaging between 150s to 170s systolic and has improved this morning with blood pressure of 145/58 with heart rate of 55, however upon further chart review patient has had significant urinary retention with a reported 4100 mL of combined urinary retention overnight as patient reports only being able to urinate a small amount each time. . -Urinary retention and postoperative discomfort is believed to be the cause of the patient's mild hypertension, do not recommend starting patient on antihypertensive medications at this time. -Pt was seen and evaluated by urology for postoperative urinary retention, reviewed documentation in chart an urologist recommending patient to be taught to self catheterization for postvoid residuals and will need to follow-up outpatient in their office. -Symptomatic care and pain management. -Recommend patient to continue atorvastatin 10 mg nightly, levothyroxine 88 mg daily, Singulair 10 mg nightly and Protonix 40 mg daily. -EKG was completed and reviewed. EKG revealing normal sinus rhythm at 60 bpm with a first-degree AV block with AR interval of 248 ms, no noted T-wave or ST abnormalities showing no signs of acute ischemia upon personal review and interpretation. -Management of postsurgical care for vaginal hysterectomy with anterior colporrhaphy/cystocele repair per primary admitting OIL WELL DIRECTIONAL SURVEYOR team. Medically, patient is stable for discharge home at this time once cleared by primary admitting OIL WELL DIRECTIONAL SURVEYOR team. Urinary retention to continue to be managed by urologist status post mid urethral sling. Discharge med rec has been completed. Patient was seen independently by Nurse Pracitioner. This document was prepared using [employer] dictation software. Please allow for errors in promotions associate, while rare they do occur. Thank you for allowing us to participate in the care of this pleasant patient. Do not hesitate to contact us with questions. Someone can be reached from the [facility] hospitalist group all hours of the day at [phone] or via perfect serve. Objective - Vital Signs Vital signs: Vital Signs Temp 98.0 F 02/14/23 00:00 Pulse 61 02/14/23 06:28 Resp 16 02/14/23 06:28 BP 156/68 02/14/23 06:28 Pulse Ox 98 02/14/23 06:28 FiO2 Intake & Output 02/13/23 02/14/23 02/14/23 18:59 06:59 18:59 Intake Total 3140 1200 Output Total 575 9426 1078 Balance 7383 -1341 -8431 Intake: Intake, IV Titration 1350 Amount Lactated Ringers 1,000 ml 1350 @ 100 mls/hr IV .Q10H [facility] Rx#:[id number] Oral 1790 1200 Output: Urine 575 4325 650 Straight 300 2900 600 Post Void Residual 4001 422 Other: Voiding Method Toilet # Voids 1 1 1 - Labs CBC & Chem 7: 02/13/23 07:01
[2023-02-14] MEDS ORDERED: amLODIPine 2.5 MG TAB PO SCH (09:00)
--- NOTE | 2023-02-14 11:06 | P.PN ---
Subjective Progress Note Date: 02/14/23 Principal diagnosis: Symptomatic grade 3 cystocele, grade 2+ uterine prolapse and Stress urinary incontinence. POD #1, s/p TOT sling. This is a 67 yo female history of stress urinary incontinence. She also has a history of symptomatic cystocele and rectocele with plan to undergo a hysterectomy with a prolapse repair by Dr. Ortega. On 02/13/23 she underwent a trans-obturator mid urethral sling with Dr. Valencia, and a vaginal hysterectomy with anterior colporrhaphy/cystocele repair with Dr. Ortega. The paient tolerated the procedures well and feels well. However, she has been able to void only small amounts, with large postvoid residuals. Objective - Vital Signs Vital signs: Vital Signs Temp 98.1 F 02/14/23 08:00 Pulse 55 L 02/14/23 08:00 Resp 16 02/14/23 08:00 BP 145/58 02/14/23 08:00 Pulse Ox 99 02/14/23 08:00 FiO2 Intake & Output 02/13/23 02/14/23 02/14/23 18:59 06:59 18:59 Intake Total 3140 1200 Output Total 575 8326 1072 Balance 3688 -1861 -9812 Intake: Intake, IV Titration 1350 Amount Lactated Ringers 1,000 ml 1350 @ 100 mls/hr IV .Q10H PENDING SALE TO [facility] Rx#:[id number] Oral 1790 1200 Output: Urine 575 4325 650 Straight 300 2900 600 Post Void Residual 4001 422 Other: Voiding Method Toilet # Voids 1 1 1 - Exam General: Well developed, well nourished. No acute distress. HEENT: Head is atraumatic, normocephalic. Lungs: Respirations even and nonlabored. Abdomen/GI: Soft, non-distended. No guarding, rigidity, + abdominal tenderness Skin: Warm and dry, bilateral groin incisions CDI Neurologic: Alert and oriented 3, CN II-XII grossly intact. No focal deficits. Psychiatric: Appropriate mood and affect. - Labs CBC & Chem 7: 02/13/23 07:01 Assessment and Plan Assessment: POD#2. The patient is feeling well but is frustrated by her inability to void. She has been able to void only small amounts, with postvoid residuals up to 575 mL. (1) KALPESH (stress urinary incontinence, female) Current Visit: Yes Status: Acute Code(s): N39.3 - STRESS INCONTINENCE (FEMALE) (MALE) SNOMED Code(s): 29525019 (2) Cystocele Current Visit: Yes Status: Acute Code(s): ISQ7536 - SNOMED Code(s): 426246153 Plan: - Increase activity - Patient will be taught to self catheterize. - From a urological standpoint the patient may be discharged later today after she has been taught to self catheterize. - Follow up with Dr. Valencia on 02/18/2023.
[2023-02-14] MEDS ORDERED: CEPHALEXIN 500 MG CAP PO SCH (11:15)
[2023-02-14] MEDS: SENNOSIDES-DOCUSATE SODIUM 1 EACH TAB PO SCH (11:45)
[2023-02-14] MEDS: MAGNESIUM OXIDE 400 MG TAB PO SCH (11:50)
[2023-02-14] MEDS: FLUTICASONE 110 MCG INHALER INHALATION SCH (11:53)
[2023-02-14 12:06] VITALS: BP 149/63; PULSE 48; TEMP 97.5
== END 2023-02-14 14:17 | disposition home or self-care (01) ==
LOC: OR 05:50 → 4FBP 10:06 → OR 02-14 08:18
PROVIDERS: ADMIT Obstetrics & Gynecology; ATTEND Obstetrics & Gynecology
DX: N39.3 Stress incontinence (female) (male) (principal); N81.3 Complete uterovaginal prolapse; N84.0 Polyp of corpus uteri; N80.03 Adenomyosis of the uterus; D25.1 Intramural leiomyoma of uterus; N83.312 Acquired atrophy of left ovary; N83.311 Acquired atrophy of right ovary; N81.6 Rectocele; I97.3 Postprocedural hypertension; R11.0 Nausea; R51.9 Headache, unspecified; N99.89 Other postprocedural complications and disorders of genitourinary system; G89.18 Other acute postprocedural pain; J45.909 Unspecified asthma, uncomplicated; E78.5 Hyperlipidemia, unspecified; E03.9 Hypothyroidism, unspecified; K21.9 Gastro-esophageal reflux disease without esophagitis; Z79.899 Other long term (current) drug therapy; Z88.5 Allergy status to narcotic agent; Z88.0 Allergy status to penicillin
CPT/HCPCS: 86900; 86901; 85025; 86850; 88307; 57288; 58260; 57240; G0378; C1771; J2250; J0330; J1200 ×2; J0780; J1580; J1100; J2765; J0690; J2405; J2274; J3010; J1885; J2704; J2001